=== PATIENT | female | born 1975 | race African-American/Black ===

== ENCOUNTER 2024-05-05 16:35 | Outpatient (CLI) | payer OTHER | END 2024-05-05 16:36 | disposition home or self-care (01) | LOC: CSHRAD 16:35 | PROVIDERS: ATTEND Family Medicine Sports Medicine | DX: M54.2 Cervicalgia (principal); M54.6 Pain in thoracic spine; M54.50 Low back pain, unspecified | CPT/HCPCS: 72040; 72070; 72100 ==